=== PATIENT | female | born 1995 | race African-American/Black ===

== ENCOUNTER 2017-09-21 22:14 | Emergency (ER) | payer OTHER ==
[2017-09-21 23:06] LABS: #Basophils 0.1 thou/uL (0.0-0.2); #Eosinphils 0.2 thou/uL (0.0-0.7); #Lymphocytes 2.1 thou/uL (1.20-3.40); #Monocytes 0.6 thou/uL (0.11-0.59); #Neutrophils 4.5 thou/uL (1.40-6.50); %Basophils 0.8 % (0.0-1.0); %Eosinophils 2.9 % (0.0-10.0); %Lymphocytes 27.9 % (21.0-51.0); %Monocytes 7.6 % (0.0-10.0); Hematocrit 40.9 % (36.0-47.0); Mean Platelet Volume 7.7 fL (7.4-10.4); Red Blood Cell (RBC) Count 4.48 mill/uL (4.20-5.40); White Blood Cell (WBC) Count 7.4 thou/uL (4.8-10.8)
[2017-09-21 23:21] LABS: ALT (SGPT) 20 U/L (8-55); AST (SGOT) 21 U/L (5-34); Alkaline Phosphatase 83 U/L (40-150); Anion Gap 15 mmol/L (10-20); BUN (Urea Nitrogen) 7 mg/dL (7.0-18.7); Bilirubin, Total 1.4 mg/dL (0.2-1.2); Calc. Creatinine Clearance 0 mL/min (70-130); Calcium 9.6 mg/dL (7.8-10.44); Carbon Dioxide 24 mmol/L (22-29); Chloride 107 mmol/L (98-107); Estimated GFR-MDRD Greater than 90; Globulin 3.3 g/dL (2.4-3.5); Lipase 19 U/L (8-78); Protein, Total 7.1 g/dL (6.0-8.3)
== END 2017-09-21 23:53 | disposition home or self-care (01) ==
LOC: SCSER 22:14
DX: K52.9 Noninfective gastroenteritis and colitis, unspecified (principal); G43.909 Migraine, unspecified, not intractable, without status migrainosus; J45.909 Unspecified asthma, uncomplicated
CPT/HCPCS: 80053; 83690; 84703; 85025; 99284

== ENCOUNTER 2017-11-03 18:59 | Emergency (ER) | payer OTHER ==
[2017-11-03] MEDS ORDERED: Lidocaine Viscous Sol 2% 15 ml UD Cup ONE (19:53)
[2017-11-03] MEDS ORDERED: Ondansetron ODT 4 MG TAB ONE (19:53)
[2017-11-03] MEDS ORDERED: Mag-Al Plus 1200 MG/1200 MG/120 MG/30 ML UDCUP ONE (19:53)
[2017-11-03 19:55] LABS: #Eosinphils 0.1 thou/uL (0.0-0.7); #Lymphocytes 1.3 thou/uL (1.20-3.40); #Monocytes 0.5 thou/uL (0.11-0.59); #Neutrophils 7.5 thou/uL (1.40-6.50); %Basophils 0.5 % (0.0-1.0); %Lymphocytes 13.8 % (21.0-51.0); Hematocrit 45.3 % (36.0-47.0); Mean Platelet Volume 9.3 fL (7.4-10.4); White Blood Cell (WBC) Count 9.4 thou/uL (4.8-10.8)
[2017-11-03 20:09] LABS: ALT (SGPT) 18 U/L (8-55); AST (SGOT) 17 U/L (5-34); Alkaline Phosphatase 81 U/L (40-150); Anion Gap 14 mmol/L (10-20); BUN (Urea Nitrogen) 6 mg/dL (7.0-18.7); Bilirubin, Total 2.9 mg/dL (0.2-1.2); Calc. Creatinine Clearance 0 mL/min (70-130); Calcium 9.7 mg/dL (7.8-10.44); Carbon Dioxide 25 mmol/L (22-29); Chloride 106 mmol/L (98-107); Estimated GFR-MDRD Greater than 90; Lipase 12 U/L (8-78); Protein, Total 7.2 g/dL (6.0-8.3)
--- NOTE | 2017-11-03 21:21 | ULT ---
GALLBLADDER ULTRASOUND: 11/03/17 COMPARISON: 11/03/16. CLINICAL HISTORY: Abdominal pain. FINDINGS: There is evidence of increased echogenicity with shadowing within the gallbladder which is contracted . No focal hepatic lesion. The common duct is normal in diameter. No significant ascites. IMPRESSION: Contracted gallbladder with evidence of cholelithiasis. No definitive evidence for acute cholecystiti s. Recommend clinical correlation in this regard. Normal sized common duct. POS: C
== END 2017-11-03 21:35 | disposition home or self-care (01) ==
LOC: SCSER 18:59
DX: K80.70 Calculus of gallbladder and bile duct without cholecystitis without obstruction (principal); J45.909 Unspecified asthma, uncomplicated; G43.909 Migraine, unspecified, not intractable, without status migrainosus; Z79.899 Other long term (current) drug therapy
CPT/HCPCS: 76705; 80053; 83690; 84703; 85025; Q0162

== ENCOUNTER 2020-03-15 02:24 | Emergency (ER) | payer OTHER ==
--- NOTE | 2020-03-15 07:50 | RAD ---
PORTABLE CHEST: DATE: 03/15/2020. PROVIDED CLINICAL HISTORY: Chest wall pain status post injury. FINDINGS: Comparison 11/05/2016. Cardiac and mediastinal silhouette is within normal limits. No focal consoli dation, pleural fluid, or pneumothorax apparent. The bony thorax appears grossly intact. IMPRESSION: No evidence for an acute cardiopulmonary process. POS: [facility]
== END 2020-03-15 02:54 | disposition home or self-care (01) ==
LOC: ERS 02:24
DX: S20.212A Contusion of left front wall of thorax, initial encounter (principal); G43.909 Migraine, unspecified, not intractable, without status migrainosus; J45.909 Unspecified asthma, uncomplicated; F32.9 Major depressive disorder, single episode, unspecified; Z79.899 Other long term (current) drug therapy; Y04.0XXA Assault by unarmed brawl or fight, initial encounter
CPT/HCPCS: 71045